=== PATIENT | male | born 1995 | race African-American/Black ===

== ENCOUNTER 2017-06-06 17:36 | Emergency (ER) | payer OTHER ==
[~2017-06-06] VITALS: Ht 175.3 cm; Wt 68.0 kg
[2017-06-06 17:57] LABS: URINE SOURCE CLEAN CATCH
[2017-06-06 18:06] LABS: URINE APPEARANCE CLEAR; URINE BILIRUBIN NEG (NEG); URINE BLOOD NEG (NEG); URINE COLOR YELLOW; URINE GLUCOSE NEG (NEG); URINE KETONE TRACE (NEG); URINE LEUKOCYTE ESTERASE 1+ (NEG); URINE NITRATE NEG (NEG); URINE PH 6.5 (5-8); URINE PROTEIN TRACE (NEG); URINE SPECIFIC GRAVITY 1.032 (1.003-1.035)
[2017-06-06 18:09] LABS: URBCS1 AUWI 0-2 /[HPF] (0-2); URINE BACTERIA AUWI NEG (NEGATIVE); URINE SQUAMOUS EPITHELIAL CELL NONE SEEN /[HPF]
[2017-06-06 18:24] LABS: CULTURE INDICATED? NO
[2017-06-09 19:52] LABS: CHLAMYDIA TRACH Not Detected (Not Detected); N GONOR Not Detected (Not Detected)
== END 2017-06-06 18:40 | disposition home or self-care (01) ==
LOC: CED 17:36 → CFTX 17:36
PROVIDERS: Physician Assistant
DX: A64 Unspecified sexually transmitted disease (principal)
CPT/HCPCS: 81003; 87491; 87591; 99283

== ENCOUNTER 2017-06-09 14:47 | Emergency (ER) | payer OTHER ==
[~2017-06-09] VITALS: Ht 175.3 cm; Wt 68.0 kg
== END 2017-06-09 15:50 | disposition home or self-care (01) ==
LOC: CFTX 14:47 → CED 14:47 → CFTX 15:30
DX: A54.9 Gonococcal infection, unspecified (principal)
CPT/HCPCS: 96372; 99283; J0696